=== PATIENT | male | born 1945 | race Caucasian/White ===

== ENCOUNTER 2016-12-18 18:25 | Emergency (ER) | payer MEDICARE, OTHER ==
[~2016-12-18] VITALS: Ht 180.3 cm; Wt 80.5 kg
[~2016-12-18 18:25] MED LIST: ASPI81TA82 PO; ATOR40TA49 PO; CIAL5TAB PO; MEDR4PAK3 PO; MULTCAP14 PO; NORV10TA PO
[2016-12-18 18:26] VITALS: BP 156/73; PULSE 83; RESP 17; TEMP 98.3; O2SAT 98
--- NOTE | 2016-12-18 18:39 | PD ---
Physical Exam Date Seen by Provider: Dec 18, 2016 Time Seen by Provider: 18:37 Narrative 71 year old male presents to the emergency department for evaluation of dizziness, nausea, intermittent chest pain that started today. He is currently on an antibiotic by his PCP for bronchitis. Patient awaiting bed placement. Data Data Last Documented VS Vital Signs Date Time Temp Pulse Resp B/P Pulse Ox O2 Delivery O2 Flow Rate FiO2 12/18/16 18:26 98.3 83 17 156/73 98 MDM Supervised Visit with CRAIG: Arlene Aviles Dec 18, 2016 18:39
== END 2016-12-18 19:39 | disposition left against medical advice (07) ==
LOC: NED 18:25
DX: R42 Dizziness and giddiness (principal)
CPT/HCPCS: 99281

== ENCOUNTER 2017-02-03 20:07 | Emergency (ER) | payer MEDICARE, OTHER ==
[~2017-02-03] VITALS: Ht 180.3 cm; Wt 85.0 kg
[2017-02-03 20:09] VITALS: BP 147/82; PULSE 97; RESP 14; TEMP 98.2; O2SAT 99
[2017-02-03] MEDS ORDERED: TRAZODONE PO (20:23)
[2017-02-03] MEDS ORDERED: ATOR40TA16 PO (20:23)
[2017-02-03] MEDS ORDERED: ASPI-110 PO (20:23)
[2017-02-03] MEDS ORDERED: AMLO10TA2 PO (20:23)
[2017-02-03] MEDS ORDERED: CIAL5TAB PO (20:23)
[2017-02-03] MEDS ORDERED: TAMS0.4C4 PO (20:23)
[2017-02-03] MEDS ORDERED: DIAZEPAM 5 MG TAB PO ONE (21:00)
[2017-02-03] MEDS ORDERED: MECLIZINE HCL 25 MG TAB PO ONE (21:00)
--- NOTE | 2017-02-03 21:01 | PD ---
HPI Chief Complaint: Dizziness Time Seen by Provider: 20:21 Travel History International Travel<30 days: No Contact w/Intl Traveler<30days: No Traveled to known affect area: No History of Present Illness HPI Patient is a 71-year-old male presents emergency department dizziness constant over the past few days. Patient states that whenever he lies down flat and goes from a lying to a sitting he feels like the room is spinning. He states he had this one time in the distant past was told he had a right ear infection. He relates a history of just before the dizziness started he had some pain in his right ear which resolved. Denies any fever denies any focalized weakness blurred vision difficulty ambulance. Has not tried any interventions prior to arrival, denies headache. PFSH Past Medical History Medical History: Denies Significant Hx Diminished Hearing: No Tetanus Vaccination: Unknown Influenza Vaccination: Yes Past Surgical History Surgical History: No Previous Surgery Social History Alcohol Use: No Tobacco Use: No Substance Use: No Allergies-Medications (Allergen,Severity, Reaction): Coded Allergies: No Known Allergies (Unverified , 02/03/17) Reported Meds & Prescriptions Reported Meds & Active Scripts Active Meclizine (Meclizine HCl) 25 Mg Tab 25 Mg PO TID PRN Valium (Diazepam) 5 Mg Tab 5 Mg PO BID PRN Reported Atorvastatin (Atorvastatin Calcium) 40 Mg Tab 40 Mg PO HS Tamsulosin (Tamsulosin HCl) 0.4 Mg Cap 0.4 Mg PO HS Amlodipine (Amlodipine Besylate) 10 Mg Tab 10 Mg PO DAILY Cialis (Tadalafil) 5 Mg Tab 5 Mg PO DAILY Do not exceed 1 dose/day. [Trazodone] 50 Addbag 50 Mg PO DAILY Aspirin 81 (Aspirin) 81 Mg Tabdr 81 Mg PO DAILY Review of Systems Except as stated in HPI: all other systems reviewed are Neg Physical Exam Narrative GENERAL: Well-developed well-nourished no apparent distress, quite pleasant jovial. SKIN: Focused skin assessment warm/dry. HEAD: Atraumatic. Normocephalic. EYES: Pupils equal and round. No scleral icterus. No injection or drainage. ENT: No nasal bleeding or discharge. Mucous membranes pink and moist. TMs clear bilaterally, oropharynx clear. NECK: Trachea midline. No JVD. CARDIOVASCULAR: Regular rate and rhythm. No murmur appreciated. RESPIRATORY: No accessory muscle use. Clear to auscultation. Breath sounds equal bilaterally. GASTROINTESTINAL: Abdomen soft, non-tender, nondistended. Hepatic and splenic margins not palpable. MUSCULOSKELETAL: No obvious deformities. No clubbing. No cyanosis. No edema. NEUROLOGICAL: Cranial nerves II through XII are grossly intact and nonfocal, 5 out of 5 strength in all 4 extremities, pupils are PERRLA, cerebellar testing by [id number] and heel ramirez test are negative. Ambulates with an even narrow based gait. PSYCHIATRIC: Appropriate mood and affect; insight and judgment normal. Data Data Last Documented VS Vital Signs Date Time Temp Pulse Resp B/P Pulse Ox O2 Delivery O2 Flow Rate FiO2 02/03/17 21:43 99 18 142/72 98 Room Air 02/03/17 20:09 98.2 Orders Diazepam (Valium) (02/03/17 21:00) Meclizine (Antivert) (02/03/17 21:00) [facility] Medical Decision Making Medical Screen Exam Complete: Yes Emergency Medical Condition: Yes Differential Diagnosis Vertigo, cerebellar stroke highly unlikely, central vertigo highly unlikely, otitis media, labyrinthitis unlikely. Narrative Course Patient was roomed in the emergency department, quite pleasant, he is highly consistent with benign positional vertigo. Neurologic exam is otherwise nonfocal. No indication for further workup at this time. He was given Valium and meclizine and instructions to follow up with his primary care physician. Discussed return to ED criteria. Diagnosis Primary Impression: Vertigo Additional Instructions: Follow-up with your regular physician by phone tomorrow. Med/Other Pt SpecificInfo: Prescription(s) given Scripts Meclizine 25 Mg Tab25 Mg PO TID PRN (VERTIGO) #30 TAB Ref 0 Prov:Miguelito Romero MD 02/03/17 Diazepam (Valium)5 Mg Tab5 Mg PO BID PRN (VERTIGO) #12 TAB Ref 0 Prov:Miguelito Romero MD 02/03/17 Disposition: 01 DISCHARGE HOME Condition: Stable Miguelito Romero MD February 03, 2017 21:01
[2017-02-03] MEDS ORDERED: MECL-62 PO (21:20)
[2017-02-03] MEDS ORDERED: DIAZ5 PO (21:20)
[2017-02-03 21:43] VITALS: BP 142/72; PULSE 99; RESP 18; O2SAT 98
== END 2017-02-03 21:50 | disposition home or self-care (01) ==
LOC: NEPD 20:07
DX: R42 Dizziness and giddiness (principal)
CPT/HCPCS: 99284

== ENCOUNTER 2017-02-07 20:35 | Emergency (ER) | payer MEDICARE, OTHER ==
[~2017-02-07] VITALS: Ht 180.3 cm; Wt 85.0 kg
[~2017-02-07 20:35] MED LIST changes: +AMLO10TA2 PO; +ASPI-110 PO; -ASPI81TA82 PO; +ATOR40TA16 PO; -ATOR40TA49 PO; +DIAZ5 PO; +MECL-62 PO; -MEDR4PAK3 PO; -MULTCAP14 PO; -NORV10TA PO; +TAMS0.4C4 PO; +TRAZODONE PO
[2017-02-07 20:38] VITALS: BP 136/67; PULSE 96; RESP 16; TEMP 97.6; O2SAT 98
[2017-02-07] MEDS ORDERED: SODIUM CHLOR 0.9% 1000 ML INJ 1,000 ML IV ONE (21:16)
--- NOTE | 2017-02-07 21:24 | PD ---
HPI Chief Complaint: Syncope/Near-Syncope Time Seen by Provider: 21:09 Travel History International Travel<30 days: No Contact w/Intl Traveler<30days: No Traveled to known affect area: No History of Present Illness HPI The patient is a 71-year-old male who presents emergency department for dizziness. The patient states he developed symptoms approximately 4-5 days ago was evaluated in the emergency department. The patient was diagnosed with vertigo placed on meclizine and diazepam. However, the patient continues to have symptoms. The patient initially had dizziness when he went from a lying to standing position or with turning his head to the left or right. The patient would feel off balance and feel like the room was spinning. He denied any nausea or vomiting, states his symptoms would last from seconds to minutes and then resolved. However, they have been persistent now for the last 2 days. He does note the exacerbated by rolling over in bed as well as standing, he denies any accompanying focal deficits. The patient states his symptoms started when he had fullness in the right ear 5 days ago with a sudden pain which resolved. He now notes a small amount of tinnitus from the right ear, but denies any hearing deficits. The patient denies any history of chronic benign positional vertigo or previous CVA. The patient does have a history of hypertension and smokes. The patient's primary physician is Dr. Clark. [facility] Past Medical History Diminished Hearing: No Social History Alcohol Use: No Tobacco Use: No Substance Use: No Allergies-Medications (Allergen,Severity, Reaction): Coded Allergies: No Known Allergies (Unverified , 02/03/17) Reported Meds & Prescriptions Reported Meds & Active Scripts Active Meclizine (Meclizine HCl) 25 Mg Tab 25 Mg PO TID PRN Valium (Diazepam) 5 Mg Tab 5 Mg PO BID PRN Reported Atorvastatin (Atorvastatin Calcium) 40 Mg Tab 40 Mg PO HS Tamsulosin (Tamsulosin HCl) 0.4 Mg Cap 0.4 Mg PO HS Amlodipine (Amlodipine Besylate) 10 Mg Tab 10 Mg PO DAILY Cialis (Tadalafil) 5 Mg Tab 5 Mg PO DAILY Do not exceed 1 dose/day. [Trazodone] 50 Addbag 50 Mg PO DAILY Aspirin 81 (Aspirin) 81 Mg Tabdr 81 Mg PO DAILY Review of Systems Except as stated in HPI: all other systems reviewed are Neg General / Constitutional: No: Fever Eyes: No: Photophobia, Visual changes HENT: Positive: Vertigo, Lightheadedness, Earache (5 days ago on the right ear which has resolved), No: Headaches Cardiovascular: No: Chest Pain or Discomfort Respiratory: No: Shortness of Breath Gastrointestinal: No: Nausea, Vomiting, Abdominal Pain Neurologic: Positive: Dizziness, No: Focal Abnormalities, Headache, Change in Mentation, Paresthesia, Sensory Disturbance Physical Exam Narrative GENERAL: Awake, alert, pleasant 71-year-old male who appears his stated age and is in no acute respiratory distress. SKIN: Focused skin assessment warm/dry. HEAD: Atraumatic. Normocephalic. EYES: Pupils equal and round. Pupils are 3 mm bilateral and reactive. EOMs are intact. No nystagmus noted.. ENT: No nasal bleeding or discharge. Mucous membranes pink and moist. Left tympanic membranes are translucent and clear. The right tympanic membrane has some scarring in the inferior posterior aspect, no obvious perforation. NECK: Trachea midline. No JVD. CARDIOVASCULAR: Regular rate and rhythm. No murmur appreciated. RESPIRATORY: No accessory muscle use. Clear to auscultation. Breath sounds equal bilaterally. GASTROINTESTINAL: Abdomen soft, non-tender, nondistended. MUSCULOSKELETAL: No obvious deformities. No clubbing. No cyanosis. No edema. NEUROLOGICAL: Awake and alert. No obvious cranial nerve deficits. Motor grossly within normal limits. Normal speech. Nonfocal. Oriented 4. Follows commands without difficulty. PSYCHIATRIC: Appropriate mood and affect; insight and judgment normal. Data Data Last Documented VS Vital Signs Date Time Temp Pulse Resp B/P Pulse Ox O2 Delivery O2 Flow Rate FiO2 02/07/17 22:07 60 20 100 02/07/17 20:38 97.6 136/67 Room Air Orders Electrocardiogram (02/07/17 21:16) Complete Blood Count With Diff (02/07/17 21:16) Comprehensive Metabolic Panel (02/07/17 21:16) Magnesium (Mg) (02/07/17 21:16) Ckmb (Isoenzyme) Profile (02/07/17 21:16) Troponin I (02/07/17 21:16) Act Partial Throm Time (Ptt) (02/07/17 21:16) Prothrombin Time / Inr (Pt) (02/07/17 21:16) Ecg Monitoring (02/07/17 21:16) Iv Access Insert/Monitor (02/07/17 21:16) Oximetry (02/07/17 21:16) Sodium Chloride 0.9% Flush (Ns Flush) (02/07/17 21:30) Sodium Chlor 0.9% 1000 Ml Inj (Ns 1000 M (02/07/17 21:16) Mri Brain W/O Contrast (02/07/17 ) CKMB (02/07/17 21:15) CKMB% (02/07/17 21:15) Labs Laboratory Tests Test 02/07/17 21:15 White Blood Count 9.7 TH/MM3 Red Blood Count 4.37 MIL/MM3 Hemoglobin 15.3 GM/DL Hematocrit 42.5 % Mean Corpuscular Volume 97.3 FL Mean Corpuscular Hemoglobin 35.1 PG Mean Corpuscular Hemoglobin 36.0 % Concent Red Cell Distribution Width 12.8 % Platelet Count 244 TH/MM3 Mean Platelet Volume 8.8 FL Neutrophils (%) (Auto) 63.8 % Lymphocytes (%) (Auto) 24.2 % Monocytes (%) (Auto) 9.1 % Eosinophils (%) (Auto) 1.9 % Basophils (%) (Auto) 1.0 % Neutrophils # (Auto) 6.2 TH/MM3 Lymphocytes # (Auto) 2.3 TH/MM3 Monocytes # (Auto) 0.9 TH/MM3 Eosinophils # (Auto) 0.2 TH/MM3 Basophils # (Auto) 0.1 TH/MM3 CBC Comment DIFF FINAL Differential Comment Prothrombin Time 10.0 SEC Prothromb Time International 0.9 RATIO Ratio Activated Partial 26.1 SEC Thromboplast Time Sodium Level 142 MEQ/L Potassium Level 3.8 MEQ/L Chloride Level 106 MEQ/L Carbon Dioxide Level 25.4 MEQ/L Anion Gap 11 MEQ/L Blood Urea Nitrogen 21 MG/DL Creatinine 1.05 MG/DL Estimat Glomerular Filtration 69 ML/MIN Rate Random Glucose 101 MG/DL Calcium Level 8.2 MG/DL Magnesium Level 2.2 MG/DL Total Bilirubin 0.8 MG/DL Aspartate Amino Transf 27 U/L (AST/SGOT) Alanine Aminotransferase 35 U/L (ALT/SGPT) Alkaline Phosphatase 111 U/L Total Creatine Kinase 118 U/L Creatine Kinase MB LESS THAN 0.5 NG/ML Troponin I LESS THAN 0.02 NG/ML Total Protein 6.8 GM/DL Albumin 3.4 GM/DL MDM Medical Decision Making Medical Screen Exam Complete: Yes Emergency Medical Condition: Yes Medical Record Reviewed: Yes Interpretation(s) MRI of the brain reveals no acute intracranial findings Laboratory Tests Test 02/07/17 21:15 White Blood Count 9.7 TH/MM3 Red Blood Count 4.37 MIL/MM3 Hemoglobin 15.3 GM/DL Hematocrit 42.5 % Mean Corpuscular Volume 97.3 FL Mean Corpuscular Hemoglobin 35.1 PG Mean Corpuscular Hemoglobin 36.0 % Concent Red Cell Distribution Width 12.8 % Platelet Count 244 TH/MM3 Mean Platelet Volume 8.8 FL Neutrophils (%) (Auto) 63.8 % Lymphocytes (%) (Auto) 24.2 % Monocytes (%) (Auto) 9.1 % Eosinophils (%) (Auto) 1.9 % Basophils (%) (Auto) 1.0 % Neutrophils # (Auto) 6.2 TH/MM3 Lymphocytes # (Auto) 2.3 TH/MM3 Monocytes # (Auto) 0.9 TH/MM3 Eosinophils # (Auto) 0.2 TH/MM3 Basophils # (Auto) 0.1 TH/MM3 CBC Comment DIFF FINAL Differential Comment Prothrombin Time 10.0 SEC Prothromb Time International 0.9 RATIO Ratio Activated Partial 26.1 SEC Thromboplast Time Sodium Level 142 MEQ/L Potassium Level 3.8 MEQ/L Chloride Level 106 MEQ/L Carbon Dioxide Level 25.4 MEQ/L Anion Gap 11 MEQ/L Blood Urea Nitrogen 21 MG/DL Creatinine 1.05 MG/DL Estimat Glomerular Filtration 69 ML/MIN Rate Random Glucose 101 MG/DL Calcium Level 8.2 MG/DL Magnesium Level 2.2 MG/DL Total Bilirubin 0.8 MG/DL Aspartate Amino Transf 27 U/L (AST/SGOT) Alanine Aminotransferase 35 U/L (ALT/SGPT) Alkaline Phosphatase 111 U/L Total Creatine Kinase 118 U/L Creatine Kinase MB LESS THAN 0.5 NG/ML Troponin I LESS THAN 0.02 NG/ML Total Protein 6.8 GM/DL Albumin 3.4 GM/DL Differential Diagnosis Differential diagnosis includes benign positional vertigo, Mnire's disease, labyrinthitis, CVA, TIA, acoustic neuroma, hyponatremia, orthostatic hypotension , dehydration. Narrative Course IV was established, labs were drawn and sent, and the patient was placed on cardiac telemetry monitoring and continuous pulse oximetry monitoring. Orthostatic vital signs were obtained. The patient was administered 1 L of IV fluids. MRI of the brain was ordered to rule out cerebellar infarct. MRI of the brain reveals no acute intracranial findings. Laboratory evaluation is unremarkable. Orthostatics reveal no significant change in blood pressure or heart rate, however, the patient was dizzy upon standing. The patient is advised no driving while dizzy and a follow-up with ENT for possible outpatient follow-up and PT for his vertigo. Diagnosis Primary Impression: Vertigo Referrals: José Manuel Fried MD as needed Patient Instructions: General Instructions Additional Instructions: Follow-up with your primary physician and/or ENT for possible outpatient PT referral. No driving while symptomatic. Plenty of fluids to stay hydrated. Med/Other Pt SpecificInfo: No Change to Meds Disposition: 01 DISCHARGE HOME Condition: Stable Duc Calloway MD February 07, 2017 21:24
[2017-02-07] MEDS ORDERED: SODIUM CHLORIDE 0.9% FLUSH 10 ML FLUSH IVF PRN (21:30)
[2017-02-07 21:41] LABS: AUTOMATED NEUTROPHIL # 6.2 TH/MM3 (1.8-7.7); BASOPHIL # 0.1 TH/MM3 (0-0.2); EOSINOPHIL # 0.2 TH/MM3 (0-0.4); EOSINOPHIL % 1.9 % (0.0-4.0); HEMATOCRIT 42.5 % (39.0-51.0); LYMPH % 24.2 % (9.0-44.0); LYMPHOCYTE # 2.3 TH/MM3 (1.0-4.8); MEAN CELL VOLUME 97.3 FL (80.0-100.0); MEAN CORPUSCULAR HEMOGLOBIN 35.1 PG (27.0-34.0); MONO % 9.1 % (0.0-8.0); NEUT % 63.8 % (16.0-70.0); PLATELET COUNT 244 TH/MM3 (150-450); RED BLOOD COUNT 4.37 MIL/MM3 (4.50-5.90); RED CELL DISTRIBUTION WIDTH 12.8 % (11.6-17.2); WHITE BLOOD COUNT 9.7 TH/MM3 (4.0-11.0)
[2017-02-07 21:43] LABS: HEMO FLAGS DIFF FINAL
[2017-02-07 21:52] LABS: APTT (PATIENT) 26.1 SEC (24.3-30.1); INTERNATIONAL NORMALIZED RATIO 0.9 RATIO
[2017-02-07 22:18] LABS: ALKALINE PHOSPHATASE 111 U/L (45-117); ALT (GPT) 35 U/L (12-78); ANION GAP 11 MEQ/L (5-15); AST (GOT) 27 U/L (15-37); BICARBONATE 25.4 MEQ/L (21.0-32.0); BLOOD UREA NITROGEN 21 MG/DL (7-18); CHLORIDE 106 MEQ/L (98-107); CREATINE KINASE 118 U/L (39-308); GLOMERULAR FILTRATION RATE 69 ML/MIN (>89); MAGNESIUM 2.2 MG/DL (1.5-2.5); SODIUM (NA) 142 MEQ/L (136-145); TOTAL BILIRUBIN ADULT 0.8 MG/DL (0.2-1.0)
[2017-02-07 22:32] LABS: POTASSIUM 3.8 MEQ/L (3.5-5.1)
[2017-02-07 22:44] LABS: CKMB LESS THAN 0.5 NG/ML (0.5-3.6)
--- NOTE | 2017-02-07 23:23 | RADRPT ---
EXAM DATE/TIME: 02/07/2017 22:49 [facility] COMPARISON: No previous studies available for comparison. INDICATIONS : Dizziness. Ringing in ear. MEDICAL HISTORY : None. SURGICAL HISTORY : None. ENCOUNTER: Initial ACUITY: PAIN SCORE: 0/10 LOCATION: cranial TECHNIQUE: Multiplanar, multisequence MRI of the brain was performed without contrast. FINDINGS: CEREBRUM: The ventricles are normal for age. No evidence of midline shift, mass lesion, hemorrhage or acute in farction. No extraaxial fluid collections are seen. The pituitary gland and suprasellar cistern are normal in configuration. WHITE MATTER: No significant signal abnormalities are seen in the white matter. POSTERIOR FOSSA: The cerebellum and brainstem are intact. The 4th ventricle is midline. The cerebellopontine angle is unremarkable. The cerebellar tonsils are normal in position. DIFFUSION IMAGING: No focal areas of restricted diffusion are seen. No evidence of acute infarction. EXTRACRANIAL: Small mucous retention cyst in the base of the right maxillary antrum. CONCLUSION: No acute intracranial findings Humphrey Redding MD on February 07, 2017 at 23:20 Board Certified Radiologist. This report was verified electronically.
[2017-02-07 23:57] VITALS: BP 132/76
--- NOTE | 2017-02-08 08:18 | EKG ---
Date Performed: 02/07/2017 Time Performed: 23:40:28 PTAGE: 71 years EKG: Baseline artifact is present. Sinus rhythm MARKED LEFT AXIS DEVIATION POSSIBLE RIGHT VENTRICULAR CONDUCTION DELAY ABNORMAL ECG WARNING: DATA QU ALITY MAY AFFECT INTERPRETATION NO PREVIOUS TRACING DOCTOR: Felipe Maher Interpretating Date/Time 02/08/2017 08:17:05
== END 2017-02-08 00:10 | disposition home or self-care (01) ==
LOC: NEPC 20:35
DX: R42 Dizziness and giddiness (principal)
CPT/HCPCS: 70551; 80053; 82550; 82552; 83735; 84484; 85025; 85610; 85730; 93005; 96360; 96361; 99285; J7030